=== PATIENT | female | born 1975 | race Caucasian/White ===

== ENCOUNTER 2018-01-19 16:21 | Emergency (ER) | payer MEDICAID ==
--- NOTE | 2018-01-19 16:49 | EDM.PDOC ---
ED HPI GENERAL MEDICAL PROBLEM - General Chief Complaint: Upper Extremity Injury/Pain Stated Complaint: HURT RIGHT SHOULDER Time Seen by Provider: 01/19/18 16:36 Source of Information: Reports: Patient History Limitations: Reports: No Limitations - History of Present Illness INITIAL COMMENTS - FREE TEXT/NARRATIVE: The patient presents with right shoulder pain. She was out riding in [place] and the horsed bucked her off and she landed on her right arm. She has pain in the right shoulder. She did not hit her head or hurt her neck. She has no chest pain or abdominal pain. She has no hip pain or leg pain. Onset: Sudden Duration: Minutes: Location: Reports: Upper Extremity, Right (Right shoulder) Quality: Reports: Sharp Severity: Moderate Improves with: Reports: Immobilization Worsens with: Reports: Movement Context: Reports: Trauma (She got bucked off of her horse) Associated Symptoms: Reports: No Other Symptoms RIGHT SHOULDER Pain Score (Numeric/FACES): 4 - Related Data Allergies Allergy/AdvReac Type Severity Reaction Status Date / Time iodine Allergy Hives Verified 01/19/18 16:40 shellfish derived Allergy Hives Verified 01/19/18 16:40 Home Meds: Home Meds Levothyroxine 125 mcg PO ACBREAKFAST 01/19/18 [History] Review of Systems - Review of Systems Review Of Systems: See Below Constitutional: Reports: No Symptoms Eyes: Reports: No Symptoms Ears: Reports: No Symptoms Nose: Reports: No Symptoms Mouth/Throat: Reports: No Symptoms Respiratory: Reports: No Symptoms Cardiovascular: Reports: No Symptoms GI/Abdominal: Reports: No Symptoms Genitourinary: Reports: No Symptoms Musculoskeletal: Reports: Shoulder Pain (Right) ED EXAM, GENERAL - Physical Exam Exam: See Below Exam Limited By: No Limitations General Appearance: Alert, No Apparent Distress Ears: Normal External Exam Nose: Normal Inspection Head: Atraumatic, Normocephalic Neck: Normal Inspection, Supple, Non-Tender Respiratory/Chest: No Respiratory Distress, Lungs Clear, Normal Breath Sounds Cardiovascular: Regular Rate, Rhythm, No Edema, No Murmur GI/Abdominal: Soft, Non-Tender, No Organomegaly, No Mass Back Exam: Normal Inspection Extremities: Other (Pain upon palpation to the right shoulder. Good sensation and pulses distally to the right arm. Abrasion to her forearm but no pain with palpation.) Neurological: Alert, Oriented, No Motor/Sensory Deficits Course - Vital Signs Last Recorded V/S: Last Vital Signs Temp 98.3 F 01/19/18 16:30 Pulse 69 01/19/18 16:30 Resp 18 01/19/18 16:30 BP 140/91 H 01/19/18 16:30 Pulse Ox 99 01/19/18 16:30 - Orders/Labs/Meds Orders: Active Orders 24 hr Category Date Time Status Shoulder Comp Rt [CR] Stat Exams 01/19/18 17:01 Taken - Re-Assessments/Exams Free Text/Narrative Re-Assessment/Exam: 01/19/18 17:30 I ordered an x-ray of her shoulder. The x-ray shows a distal clavicle fracture. I will put her in a sling and swathe. 01/19/18 17:47 The patient is from [place]. I will make a copy of her x-rays. Departure - Departure Time of Disposition: 17:50 Disposition: Home, Self-Care 01 Condition: Good Clinical Impression: Closed fracture of distal clavicle Qualifiers: Encounter type: initial encounter Fracture alignment: displaced Laterality: right Qualified Code(s): S42.031A - Displaced fracture of lateral end of right clavicle, initial encounter for closed fracture - Discharge Information *PRESCRIPTION DRUG MONITORING PROGRAM REVIEWED*: Not Applicable *COPY OF PRESCRIPTION DRUG MONITORING REPORT IN PATIENT TERESE: Not Applicable Instructions: Clavicle Fracture, [id number] Referrals: PCP,None [Primary Care Provider] - Forms: ED Department Discharge Additional Instructions: Ice your shoulder for 15 minutes every other hour while awake for 2 days. Take motrin or tylenol for pain. Wear the sling and swathe for comfort. Take if off a few times per day and move your shoulder to avoid frozen shoulder. Please return if you are worse. - My Orders Last 24 Hours: My Active Orders 01/19/18 17:01 Shoulder Comp Rt [CR] Stat - Assessment/Plan Last 24 Hours: My Active Orders 01/19/18 17:01 Shoulder Comp Rt [CR] Stat
--- NOTE | 2018-01-21 09:37 | CR ---
Right shoulder: Three views of the right shoulder were obtained. Comparison: No previous study. Slightly displaced distal right clavicle fracture is seen. Distal clavicular fragment is also seen with questionably elevation at the acromioclavicular joint. Glenohumeral joint appears within normal limits. No additional abnormality is appreciated. Impression: 1. Slightly displaced distal right clavicle fracture with equivocal disruption of the acromioclavicular joint. Diagnostic code #3
== END 2018-01-19 18:05 | disposition home or self-care (01) ==
LOC: JD.ED 16:21
DX: S42.031A Displaced fracture of lateral end of right clavicle, initial encounter for closed fracture (principal); Z88.8 Allergy status to other drugs, medicaments and biological substances; Z91.013 Allergy to seafood; V80.010A Animal-rider injured by fall from or being thrown from horse in noncollision accident, initial encounter
CPT/HCPCS: 73030-26-RT; 73030-RT; 99283; 99284